=== PATIENT | female | born 1955 | race Caucasian/White ===

== ENCOUNTER 2023-09-07 09:34 | Outpatient (CLI) | payer MEDICARE, BC | END 2023-09-07 09:35 | disposition home or self-care (01) | LOC: BICULT 09:34 | PROVIDERS: ATTEND Family Medicine | DX: R16.0 Hepatomegaly, not elsewhere classified (principal); K76.89 Other specified diseases of liver | CPT/HCPCS: 76705 ==

== ENCOUNTER 2023-09-20 11:23 | Outpatient (CLI) | payer MEDICARE, BC | END 2023-09-20 11:24 | disposition home or self-care (01) | LOC: BICRAD 11:23 | PROVIDERS: ATTEND Physician Assistant | DX: S22.000A Wedge compression fracture of unspecified thoracic vertebra, initial encounter for closed fracture (principal); M43.8X4 Other specified deforming dorsopathies, thoracic region | CPT/HCPCS: 72072 ==

== ENCOUNTER 2025-02-10 13:34 | Outpatient (CLI) | payer MEDICARE, BC ==
[~2025-02-10 13:34] MED LIST: Iopamidol 370 76% 100 ML VIAL ONE
== END 2025-02-10 13:35 | disposition home or self-care (01) ==
LOC: CT 13:34
PROVIDERS: ATTEND Family Medicine
DX: R79.89 Other specified abnormal findings of blood chemistry (principal)
CPT/HCPCS: 74177; Q9967